=== PATIENT | female | born 1990 | race Caucasian/White ===

== ENCOUNTER 2016-08-17 12:17 | Emergency (ER) | payer MEDICAID ==
[2016-08-17 12:44] LABS: BASOPHILS 0.4 % (0-2); EOSINOPHILS 3.1 % (0-7); HEMATOCRIT 42.8 % (36.0-48.0); HEMOGLOBIN 14.8 g/dL (12-16); IMMATURE GRANULOCYTES 0.3 % (0-5); LYMPHOCYTES 16.6 % (15-50); MCH 30.1 pg (26.0-34.0); MCHC 34.6 g/dL (31.0-37.0); MCV 87.2 fL (80.0-100.0); MEAN PLATELET VOLUME 9.2 fL (7.4-10.4); MONOCYTES 5.2 % (2-11); NEUTROPHILS 74.4 % (40-80); PLATELET COUNT 327 10x3/uL (130-400); RBC 4.91 10x6/uL (4.00-5.40); RDW 12.7 % (11.5-14.5); WBC 11.5 10x3/uL (4.8-10.8)
[2016-08-17 13:06] LABS: ALBUMIN 3.6 g/dL (3.4-5.0); ALKALINE PHOSPHATASE 77 U/L (46-116); ALT (SGPT) 24 U/L (10-68); CALC OSMOLALITY 276 mosm/kg (275-300); CALCIUM 9.2 mg/dL (8.5-10.1); CARBON DIOXIDE 21.9 mmol/L (21.0-32.0); CHLORIDE - SERUM 103 mmol/L (98-107); CREATININE - SERUM 0.5 mg/dL (0.6-1.3); GLUCOSE 101 mg/dL (74-106); POTASSIUM - SERUM 4.4 mmol/L (3.5-5.1); PROTEIN - SERUM 7.4 g/dL (6.4-8.2); SODIUM 138 mmol/L (136-145); UREA NITROGEN 15 mg/dL (7-18); eGFR NON AFRICAN AMERICAN > 90 mL/min (90-120)
[2016-08-17 14:00] LABS: APPEARANCE CLEAR (CLEAR); COLOR YELLOW (YELLOW); LEUKOCYTE ESTERASE 2+ (NEGATIVE)
[2016-08-17 14:01] LABS: BILIRUBIN NEGATIVE (NEGATIVE); EPITHELIAL CELLS 0-5 /hpf (0-5); GLUCOSE NEGATIVE (NEGATIVE); KETONE LARGE mg/dL (NEGATIVE); NITRITE POSITIVE (NEGATIVE); PROTEIN TRACE mg/dL (NEGATIVE); RED CELLS - URINE 0-5 /hpf (0-5); UROBILINOGEN NORMAL (NORMAL); WHITE CELLS - URINE 25-50 /hpf (0-5)
[2016-08-17 14:02] LABS: BACTERIA MANY /hpf (NONE SEEN)
== END 2016-08-17 15:58 | disposition home or self-care (01) ==
LOC: D.ER 12:17
PROVIDERS: Emergency Medicine; Physician Assistant
DX: E10.649 Type 1 diabetes mellitus with hypoglycemia without coma (principal); Z79.4 Long term (current) use of insulin; R51 Headache; N39.0 Urinary tract infection, site not specified

== ENCOUNTER 2017-02-12 00:18 | Emergency (ER) | payer MEDICAID ==
[2017-02-12 00:54] LABS: HCG URINE NEGATIVE (NEGATIVE)
[2017-02-12 00:58] LABS: APPEARANCE CLOUDY (CLEAR); BILIRUBIN NEGATIVE (NEGATIVE); COLOR YELLOW (YELLOW); GLUCOSE 1000 mg/dL (NEGATIVE); KETONE NEGATIVE (NEGATIVE); NITRITE POSITIVE (NEGATIVE); PROTEIN TRACE mg/dL (NEGATIVE); RED CELLS - URINE 0-5 /hpf (0-5); SPECIFIC GRAVITY 1.015 (1.005-1.020); UROBILINOGEN NORMAL (NORMAL); WHITE CELLS - URINE 25-50 /hpf (0-5)
[2017-02-12 00:59] LABS: BACTERIA MANY /hpf (NONE SEEN); EPITHELIAL CELLS RARE /hpf (0-5)
[2017-02-12 01:03] LABS: UDS - AMPHET NEGATIVE QUAL (NEGATIVE); UDS - BARB NEGATIVE QUAL (NEGATIVE); UDS - BENZO NEGATIVE QUAL (NEGATIVE); UDS - COCAINE NEGATIVE QUAL (NEGATIVE); UDS - OPIATE NEGATIVE QUAL (NEGATIVE); UDS - PCP NEGATIVE QUAL (NEGATIVE); UDS - THC POSITIVE QUAL (NEGATIVE)
[2017-02-12 01:14] LABS: BASOPHILS 0.9 % (0-2); EOSINOPHILS 4.3 % (0-7); HEMATOCRIT 41.2 % (36.0-48.0); HEMOGLOBIN 14.5 g/dL (12-16); IMMATURE GRANULOCYTES 0.2 % (0-5); LYMPHOCYTES 61.8 % (15-50); MCH 29.8 pg (26.0-34.0); MCHC 35.2 g/dL (31.0-37.0); MCV 84.8 fL (80.0-100.0); MONOCYTES 9.3 % (2-11); NEUTROPHILS 23.5 % (40-80); PLATELET COUNT 296 10x3/uL (130-400); RBC 4.86 10x6/uL (4.00-5.40); RDW 13.1 % (11.5-14.5); WBC 5.3 10x3/uL (4.8-10.8)
[2017-02-12 01:40] LABS: ALBUMIN 3.8 g/dL (3.4-5.0); ALKALINE PHOSPHATASE 56 U/L (46-116); ALT (SGPT) 18 U/L (10-68); AMYLASE - SERUM 47 U/L (25-115); CALC OSMOLALITY 275 mosm/kg (275-300); CALCIUM 8.7 mg/dL (8.5-10.1); CARBON DIOXIDE 24.7 mmol/L (21.0-32.0); CHLORIDE - SERUM 106 mmol/L (98-107); CREATININE - SERUM 0.5 mg/dL (0.6-1.3); LIPASE 119 U/L (73-393); POTASSIUM - SERUM 3.6 mmol/L (3.5-5.1); PROTEIN - SERUM 7.6 g/dL (6.4-8.2); SODIUM 141 mmol/L (136-145); UREA NITROGEN 8 mg/dL (7-18); eGFR NON AFRICAN AMERICAN > 90 mL/min (90-120)
[2017-02-12 01:43] LABS: GLUCOSE 43 mg/dL (74-106)
== END 2017-02-12 02:17 | disposition home or self-care (01) ==
LOC: D.ER 00:18
PROVIDERS: Family Medicine
DX: N39.0 Urinary tract infection, site not specified (principal); E11.9 Type 2 diabetes mellitus without complications; Z79.4 Long term (current) use of insulin

== ENCOUNTER 2018-10-15 16:58 | Emergency (ER) | payer MEDICAID ==
[2018-10-15 17:25] VITALS: Wt 65.0 kg
[2018-10-15 18:18] LABS: APPEARANCE CLEAR (CLEAR); BILIRUBIN NEGATIVE (NEGATIVE); COLOR YELLOW (YELLOW); GLUCOSE 1000 mg/dL (NEGATIVE); KETONE NEGATIVE (NEGATIVE); NITRITE NEGATIVE (NEGATIVE); PROTEIN NEGATIVE (NEGATIVE); UROBILINOGEN NORMAL (NORMAL)
[2018-10-15 18:19] LABS: RED CELLS - URINE RARE /hpf (0-5)
[2018-10-15 18:20] LABS: BACTERIA FEW /hpf (NONE SEEN)
[2018-10-15 18:21] LABS: HCG URINE NEGATIVE (NEGATIVE)
[2018-10-15 18:22] LABS: BASOPHILS 0.5 % (0-2); EOSINOPHILS 2.7 % (0-7); HEMATOCRIT 33.8 % (36.0-48.0); IMMATURE GRANULOCYTES 0.3 % (0-5); LYMPHOCYTES 38.3 % (15-50); MCH 29.4 pg (26.0-34.0); MCHC 35.5 g/dL (31.0-37.0); MCV 82.8 fL (80.0-100.0); MEAN PLATELET VOLUME 9.4 fL (7.4-10.4); MONOCYTES 4.7 % (2-11); NEUTROPHILS 53.5 % (40-80); RBC 4.08 10x6/uL (4.00-5.40); RDW 13.2 % (11.5-14.5)
[2018-10-15 18:25] LABS: PLATELET COUNT 202 10x3/uL (130-400)
[2018-10-15 18:47] LABS: ALBUMIN 3.7 g/dL (3.4-5.0); ALKALINE PHOSPHATASE 96 U/L (46-116); ALT (SGPT) 63 U/L (10-68); BILIRUBIN - TOTAL 0.53 mg/dL (0.2-1.3); CALC OSMOLALITY 286 mosm/kg (275-300); CALCIUM 8.5 mg/dL (8.5-10.1); CARBON DIOXIDE 24.1 mmol/L (21.0-32.0); CHLORIDE - SERUM 106 mmol/L (98-107); CREATININE - SERUM 0.9 mg/dL (0.6-1.3); GLUCOSE 268 mg/dL (74-106); MAGNESIUM - SERUM 1.9 mg/dL (1.8-2.4); POTASSIUM - SERUM 3.8 mmol/L (3.5-5.1); PROTEIN - SERUM 7.2 g/dL (6.4-8.2); SODIUM 139 mmol/L (136-145); UREA NITROGEN 13 mg/dL (7-18); eGFR NON AFRICAN AMERICAN 80 mL/min (90-120)
[2018-10-15 18:51] LABS: KETONE - SERUM NEGATIVE (NEGATIVE)
[2018-10-15] MEDS ORDERED: CIPRO500 MG PO (19:57)
[2018-10-15] MEDS ORDERED: VISTARIL25 MG PO (19:57)
[2018-10-15] MEDS ORDERED: GUAIFENESI100 MG/5 M PO (20:02)
[2018-10-15 20:59] VITALS: BP 102/72
[2018-11-17 18:24] VITALS: Wt 65.0 kg
== END 2018-10-15 21:00 | disposition home or self-care (01) ==
LOC: D.ER 16:58
PROVIDERS: Family Medicine
DX: N39.0 Urinary tract infection, site not specified (principal); R21 Rash and other nonspecific skin eruption; J06.9 Acute upper respiratory infection, unspecified

== ENCOUNTER 2018-11-17 11:17 | Inpatient (IN) | payer MEDICAID ==
[~2018-11-17] VITALS: Ht 154.9 cm; Wt 62.7 kg
[2018-11-17] VITALS (7 sets, daily range): BP systolic 87–112; BP diastolic 44–73; Ht 154.9 cm; Wt 62.7 kg
[~2018-11-17 11:17] MED LIST: CIPRO500 MG PO; GUAIFENESI100 MG/5 M PO; VISTARIL25 MG PO
[2018-11-17 12:37] LABS: BASOPHILS 0.2 % (0-2); EOSINOPHILS 0.1 % (0-7); HEMATOCRIT 36.9 % (36.0-48.0); HEMOGLOBIN 12.7 g/dL (12-16); IMMATURE GRANULOCYTES 0.3 % (0-5); LYMPHOCYTES 5.6 % (15-50); MCH 29.5 pg (26.0-34.0); MCHC 34.4 g/dL (31.0-37.0); MCV 85.6 fL (80.0-100.0); MEAN PLATELET VOLUME 8.9 fL (7.4-10.4); MONOCYTES 2.8 % (2-11); RBC 4.31 10x6/uL (4.00-5.40); RDW 13.2 % (11.5-14.5); WBC 18.9 10x3/uL (4.8-10.8)
[2018-11-17 12:49] LABS: HCG SERUM NEGATIVE (NEGATIVE); PLATELET COUNT 397 10x3/uL (130-400)
[2018-11-17 12:54] LABS: ALKALINE PHOSPHATASE 79 U/L (46-116); ALT (SGPT) 12 U/L (10-68); APTT 30.1 SECONDS (22.8-39.4); BILIRUBIN - TOTAL 1.07 mg/dL (0.2-1.3); CALC OSMOLALITY 282 mosm/kg (275-300); CALCIUM 8.9 mg/dL (8.5-10.1); CARBON DIOXIDE 23.6 mmol/L (21.0-32.0); CHLORIDE - SERUM 102 mmol/L (98-107); CREATININE - SERUM 0.9 mg/dL (0.6-1.3); INR 1.11 (0.85-1.17); POTASSIUM - SERUM 4.2 mmol/L (3.5-5.1); PROTEIN - SERUM 8.3 g/dL (6.4-8.2); PROTIME 13.8 SECONDS (11.6-15.0); SODIUM 138 mmol/L (136-145); UREA NITROGEN 13 mg/dL (7-18); eGFR NON AFRICAN AMERICAN 80 mL/min (90-120)
[2018-11-17 12:58] LABS: GLUCOSE 219 mg/dL (74-106)
[2018-11-17 13:05] LABS: CKMB 0.3 U/L (0.0-3.6); CREATINE KINASE 80 UL (21-215); THYROID STIMULATING HORMONE 22.28 uIU/mL (0.36-3.74); TROPONIN-I < 0.017 ng/mL (0.000-0.060)
--- NOTE | 2018-11-17 13:27 | NUR ---
OC SPECIMEN OBTAINED, LABELED AT BS AND SENT TO LAB
[2018-11-17 13:38] LABS: APPEARANCE CLEAR (CLEAR); BILIRUBIN NEGATIVE (NEGATIVE); COLOR YELLOW (YELLOW); GLUCOSE 1000 mg/dL (NEGATIVE); KETONE MODERATE mg/dL (NEGATIVE); NITRITE NEGATIVE (NEGATIVE); PROTEIN NEGATIVE (NEGATIVE); SPECIFIC GRAVITY 1.015 (1.005-1.020); UROBILINOGEN NORMAL (NORMAL)
[2018-11-17 13:41] LABS: BACTERIA FEW /hpf (NEGATIVE); EPITHELIAL CELLS 0-5 /hpf (0-5); MUCUS >1+ /lpf (NONE SEEN); RED CELLS - URINE 0-5 /hpf (0-5); WHITE CELLS - URINE OCC /hpf (NEGATIVE)
[2018-11-17 13:43] LABS: UDS - AMPHET NEGATIVE QUAL (NEGATIVE); UDS - BARB NEGATIVE QUAL (NEGATIVE); UDS - BENZO NEGATIVE QUAL (NEGATIVE); UDS - COCAINE NEGATIVE QUAL (NEGATIVE); UDS - OPIATE NEGATIVE QUAL (NEGATIVE); UDS - PCP NEGATIVE QUAL (NEGATIVE); UDS - THC NEGATIVE QUAL (NEGATIVE)
--- NOTE | 2018-11-17 17:25 | NUR ---
ROCEPHIN INFUSION COMPLETE
--- NOTE | 2018-11-17 17:34 | NUR ---
REPORT T6O HILDA. ADELIA BY SBAR FORMAT
--- NOTE | 2018-11-17 17:50 | NUR ---
TRANSPORTED TO ROOM #1209, CONDITION STABLE
[2018-11-17] MEDS ORDERED: HUMALOG 30100 UNITS/ SC (18:52)
[2018-11-17] MEDS ORDERED: LANTUS SOL100 UNIT/1 SC (18:55)
--- NOTE | 2018-11-17 19:31 | MORECARE ---
CASE MANAGEMENT DISCHARGE SUMMARY PATIENT: LOREN CHANG UNIT: [id number] ADM DATE: 11/17/18 AGE: 28 : [birth year] SEX: F ROOM/BED: D.1209 AUTHOR: MINH LEE PHYSICIAN: REFERRING PHYSICIAN: ROSENDO VILLALOBOS MD DATE OF SERVICE: 11/17/18 Discharge Plan Patient Name: LOREN CHANG Facility: [facility]:[place] : 1990 Planned Disposition: Home Anticipated Discharge Date: 11/20/18 Discharge Date: Expected LOS: 3 Initial Reviewer: [email or web address] Initial Review Date: 11/17/2018 Generated: 11/17/18 8:30 pm DCPIA - Discharge Planning Initial Assessment Updated by [email or web address]: Alla Griggs on 11/17/18 7:27 pm * Is the patient Alert and Oriented? Yes * PCP Dr. Tanner - first appointment next Tuesday. * Preadmission Environment Home with Family * ADLs Independent * Equipment Glucometer * List name and contact numbers for known caregivers / representatives who currently or will assist patient after discharge: Krysta Mcgill [facility] - [phone] * Verbal permission to speak to the caregivers and representatives has been obtained from the patient. Yes * Community resources currently utilized None * Additional services required to return to the preadmission environment? No * Can the patient safely return to the preadmission environment? Yes * Has this patient been hospitalized within the prior 30 days at any hospital? No Patient Name: LOREN CHANG Page [id number] at 1931 All edits/amendments must be made on the electronic document DICTATION DATE: 11/17/181929 ELECTRONICS PROCESSING SUPERVISOR: ASHLEY 11/17/181929 RPT#: [id number] DC DATE: STATUS: ADM IN [facility] [address] [place] [address] END OF REPORT
--- NOTE | 2018-11-17 19:37 | MORECARE ---
CASE MANAGEMENT DISCHARGE SUMMARY PATIENT: LOREN CHANG UNIT: [id number] ADM DATE: 11/17/18 AGE: 28 : [birth year] SEX: F ROOM/BED: D.1209 AUTHOR: JESUS,DOC PHYSICIAN: REFERRING PHYSICIAN: ROSENDO VILLALOBOS MD DATE OF SERVICE: 11/17/18 Discharge Plan Patient Name: LOREN CHANG Facility: [facility]:[place] : 1990 Planned Disposition: Home Anticipated Discharge Date: 11/20/18 Discharge Date: Expected LOS: 3 Initial Reviewer: [email or web address] Initial Review Date: 11/17/2018 Generated: 11/17/18 8:37 pm DCP- Discharge Planning Updated by [email or web address]: Alla Griggs on 11/17/18 6:[address] DC PLAN:Return home with her significant other. ANTICIPATED DC NEEDS: Denied known needs at the time of this assessment. CM met with patient and her boyfriend, Krysta to complete initial dc planning assessment. Patient covered up and did not answer or acknowledge CM. CM educated patient's boyfriend on the CM role and verbal consent given by him to complete assessment. CM verified patient's address, phone number, and emergency contact phone numbers. Patient lives at home with her boyfriend and he reports she is independent in her care. At discharge patient plan will be to return home and he feels this is a safe discharge. CM discussed availability of home health, rehab services, and medical equipment. He denied known discharge needs at this time. Her boyfriend will transport her home at time of discharge. CM will continue to follow and will assist as needed with dc plans/needs. Alla Griggs RN, [facility] DCPIA - Discharge Planning Initial Assessment Updated by [email or web address]: Alla Griggs on 11/17/18 7:27 pm * Is the patient Alert and Oriented? Yes * PCP Dr. Tanner - first appointment next Tuesday. * Preadmission Environment Home with Family * ADLs Independent * Equipment Glucometer * List name and contact numbers for known caregivers / representatives who currently or will assist patient after discharge: Krysta Mcgill - [facility] - [phone] * Verbal permission to speak to the caregivers and representatives has been obtained from the patient. Yes * Community resources currently utilized None * Additional services required to return to the preadmission environment? No * Can the patient safely return to the preadmission environment? Yes * Has this patient been hospitalized within the prior 30 days at any hospital? No Last DP export: 11/17/18 6:31 p Patient Name: LOREN CHANG Page [id number] at 1937 All edits/amendments must be made on the electronic document DICTATION DATE: 11/17/181936 GARBAGE DEPOT WORKER: ASHLEY 11/17/181936 RPT#: [id number] DC DATE: STATUS: ADM IN [facility] [address] [place] [address] END OF REPORT
[2018-11-17 20:48] LABS: MONO NEGATIVE (NEGATIVE)
[2018-11-17 20:48] LABS: KETONE - SERUM NEGATIVE (NEGATIVE)
[2018-11-17 20:56] LABS: CALC OSMOLALITY 279 mosm/kg (275-300); CALCIUM 7.6 mg/dL (8.5-10.1); CARBON DIOXIDE 21.8 mmol/L (21.0-32.0); CHLORIDE - SERUM 107 mmol/L (98-107); CREATININE - SERUM 0.7 mg/dL (0.6-1.3); GLUCOSE 154 mg/dL (74-106); POTASSIUM - SERUM 3.7 mmol/L (3.5-5.1); SODIUM 140 mmol/L (136-145); UREA NITROGEN 8 mg/dL (7-18); eGFR NON AFRICAN AMERICAN > 90 mL/min (90-120)
[2018-11-18] VITALS: BP 87/51
[2018-11-18 04:00] VITALS: BP 91/59
[2018-11-18 07:32] LABS: BASOPHILS 0.1 % (0-2); EOSINOPHILS 0 % (0-7); HEMATOCRIT 35.7 % (36.0-48.0); IMMATURE GRANULOCYTES 0.4 % (0-5); LYMPHOCYTES 6.1 % (15-50); MCH 29.1 pg (26.0-34.0); MCHC 33.6 g/dL (31.0-37.0); MCV 86.7 fL (80.0-100.0); MEAN PLATELET VOLUME 8.8 fL (7.4-10.4); NEUTROPHILS 91.4 % (40-80); PLATELET COUNT 319 10x3/uL (130-400); RBC 4.12 10x6/uL (4.00-5.40); RDW 13.1 % (11.5-14.5)
[2018-11-18 07:34] LABS: WBC 13.8 10x3/uL (4.8-10.8)
--- NOTE | 2018-11-18 07:36 | NUR ---
PT LAYING IN BED, RESTING. RR EVEN AND UNLABORED. EDUCATED PT TO HOLD ARM STRAIGHT FOR IV IN R. AC TO FUNCTION. ASSESSMENT COMPLETE. WILL CONTINUE TO MONITOR.
[2018-11-18 07:53] LABS: C-REACTIVE PROTEIN 8.6 mg/dL (0.0-0.9); CALCIUM 8.6 mg/dL (8.5-10.1); CHLORIDE - SERUM 104 mmol/L (98-107); CREATININE - SERUM 0.8 mg/dL (0.6-1.3); MAGNESIUM - SERUM 1.9 mg/dL (1.8-2.4); PHOSPHOROUS 3.4 mg/dL (2.5-4.9); SODIUM 136 mmol/L (136-145); UREA NITROGEN 9 mg/dL (7-18); eGFR NON AFRICAN AMERICAN > 90 mL/min (90-120)
[2018-11-18 08:03] LABS: CALC OSMOLALITY 281 mosm/kg (275-300); GLUCOSE 289 mg/dL (74-106); POTASSIUM - SERUM 4.3 mmol/L (3.5-5.1)
[2018-11-18 08:36] LABS: ERYTHROCYTE SEDIMENTATION RATE 25 mm/hr (0-20)
[2018-11-18 09:07] VITALS: BP 112/68
--- NOTE | 2018-11-18 16:10 | NUR ---
I have reviewed this patient and I concur with the Shift Assessment completed by the Licensed Practical Nurse today this shift.
[2018-11-18 17:36] VITALS: BP 95/58
--- NOTE | 2018-11-18 19:00 | NUR ---
PATIENT LYING IN BED WITH SIGNIFICANT OTHER. PATIENT STATES THAT SHE HAS BEEN HAVING REALLY BAD DIARREAH TODAY AND HEADACHE. PAIN IS A 5 TO 7 OUT OF A 10. PATIENT HOOKED UP TO TELEMETRY. PATIENT ENCOURAGED TO CALL WITH ANY NEEDS. PATIENT CALL LIGHT AND BEDSIDE TABLE WITHIN REACH. BED IN LOW POSITION.
[2018-11-18 19:45] VITALS: BP 130/79
--- NOTE | 2018-11-18 22:28 | NUR ---
PATIENT LYING IN BED. BOYFRIEND AT BEDSIDE. PATIENTS STATES SHE THINKS HER NAUSEA IS BETTER, BUT SAYS SHE STILL FEELS PRETTY SICK. ENCOURAGED PATIENT TO CALL WITH ANY NEEDS. BED IN LOW POSITION. CALL LIGHT WITHIN REACH.
[2018-11-19 00:08] VITALS: BP 119/76
[2018-11-19 04:57] VITALS: BP 113/79
--- NOTE | 2018-11-19 07:23 | NUR ---
PT RESTING, EYED CLOSED. RR EVEN AND UNLABORED. NO SIGNS OF DISTRESS AT THIS TIME. WILL CONTINUE TO MONITOR.
[2018-11-19 07:47] LABS: BASOPHILS 0.3 % (0-2); EOSINOPHILS 0.2 % (0-7); HEMOGLOBIN 12.2 g/dL (12-16); IMMATURE GRANULOCYTES 0.5 % (0-5); LYMPHOCYTES 23.2 % (15-50); MCH 29.2 pg (26.0-34.0); MCHC 33.9 g/dL (31.0-37.0); MCV 86.1 fL (80.0-100.0); MEAN PLATELET VOLUME 9.2 fL (7.4-10.4); MONOCYTES 4.6 % (2-11); NEUTROPHILS 71.2 % (40-80); PLATELET COUNT 394 10x3/uL (130-400); RBC 4.18 10x6/uL (4.00-5.40); RDW 13.2 % (11.5-14.5); WBC 15.1 10x3/uL (4.8-10.8)
[2018-11-19 08:00] LABS: CALCIUM 8.9 mg/dL (8.5-10.1); CHLORIDE - SERUM 109 mmol/L (98-107); CREATININE - SERUM 0.7 mg/dL (0.6-1.3); POTASSIUM - SERUM 3.7 mmol/L (3.5-5.1); SODIUM 143 mmol/L (136-145); UREA NITROGEN 7 mg/dL (7-18); eGFR NON AFRICAN AMERICAN > 90 mL/min (90-120)
[2018-11-19 08:05] LABS: CALC OSMOLALITY 287 mosm/kg (275-300); CARBON DIOXIDE 24.1 mmol/L (21.0-32.0); GLUCOSE 181 mg/dL (74-106)
[2018-11-19 10:03] VITALS: BP 95/57
--- NOTE | 2018-11-19 13:00 | NUR ---
PT IN SHOWER. LINENS CHANGED.
--- NOTE | 2018-11-19 16:15 | NUR ---
PT AMBULATING IN HALLWAY
[2018-11-19 17:36] VITALS: BP 119/76
--- NOTE | 2018-11-19 18:58 | NUR ---
UPON ENTERING ROOM, PT WAS TEARFUL AND C/O PAIN IN HER IV. IV D/C WITH CATHETER TIP INTACT. RESITED TO LEFT FOREARM. DRESSING PLACED, CDI.
[2018-11-19 20:04] VITALS: BP 109/74
--- NOTE | 2018-11-19 21:04 | NUR ---
PATIENTS BLOOD SUGAR IS 79.
[2018-11-20 01:07] VITALS: BP 112/75
[2018-11-20 04:22] VITALS: BP 103/69
[2018-11-20 06:18] LABS: BASOPHILS 0.6 % (0-2); EOSINOPHILS 1.9 % (0-7); HEMATOCRIT 35.4 % (36.0-48.0); IMMATURE GRANULOCYTES 0.3 % (0-5); LYMPHOCYTES 38.6 % (15-50); MCHC 33.9 g/dL (31.0-37.0); MCV 85.5 fL (80.0-100.0); MEAN PLATELET VOLUME 8.7 fL (7.4-10.4); NEUTROPHILS 53.6 % (40-80); PLATELET COUNT 392 10x3/uL (130-400); RBC 4.14 10x6/uL (4.00-5.40); RDW 13.1 % (11.5-14.5)
[2018-11-20 06:22] LABS: WBC 10.2 10x3/uL (4.8-10.8)
[2018-11-20 06:25] LABS: CALCIUM 8.4 mg/dL (8.5-10.1); CARBON DIOXIDE 27.2 mmol/L (21.0-32.0); CHLORIDE - SERUM 106 mmol/L (98-107); CREATININE - SERUM 0.6 mg/dL (0.6-1.3); POTASSIUM - SERUM 3.8 mmol/L (3.5-5.1); SODIUM 143 mmol/L (136-145); eGFR NON AFRICAN AMERICAN > 90 mL/min (90-120)
[2018-11-20 06:37] LABS: CALC OSMOLALITY 283 mosm/kg (275-300); UREA NITROGEN 14 mg/dL (7-18)
[2018-11-20 06:38] LABS: GLUCOSE 57 mg/dL (74-106)
--- NOTE | 2018-11-20 07:15 | NUR ---
PT LYING IN BED. EYES CLOSED. CHEST RISING AND FALLING. ON ROOM AIR. LEFT FA 22G IV SL. BED LOW. CL IN REACH. WILL CONTINUE TO MONITOR.
[2018-11-20 07:54] VITALS: BP 115/67
--- NOTE | 2018-11-20 08:15 | NUR ---
LEFT FA 22G IV FLUSHED WITH 10ML OF NS.
--- NOTE | 2018-11-20 08:15 | NUR ---
FLUSHED PT'S RIGHT FA 22G IV WITH 10ML NS.
--- NOTE | 2018-11-20 09:35 | NUR ---
PT LYING IN BED. EYES CLOSED. CHEST RISING AND FALLING. ROOM AIR. BED LOW. CL IN REACH. WILL CONTINUE TO MONITOR.
--- NOTE | 2018-11-20 09:57 | NUR ---
SPOKE WITH DATABASE DEVELOPMENT PROJECT MANAGER FROM [employer] ABOUT WORK EXCUSE FOR PT'S BOYFRIEND. SHE STATES SHE WILL ASK KASIE TO GET ONE. I VERBALIZED UNDERSTANDING.
--- NOTE | 2018-11-20 10:00 | NUR ---
SPOKE WITH KASIE DELVALLE AND SHE STATES SHE SPOKE WITH PEDRO DELVALLEDISPLAY TRIMMER AND SHE IS GOING TO DEAL WITH WORK EXCUSE FOR PT'S BOYFRIEND.
--- NOTE | 2018-11-20 11:19 | NUR ---
I have reviewed this patient and I concur with the Shift Assessment completed by the Licensed Practical Nurse today this shift.
[2018-11-20 11:52] VITALS: BP 109/61
[2018-11-20 13:09] LABS: EBV - EARLY ANTIGEN AB IGG 66.5 U/mL (0.0-8.9); EBV VIRAL CAPSID AB IGG >600.0 U/mL (0.0-17.9); EBV VIRAL CAPSID AB IGM <36.0 U/mL (0.0-35.9)
[2018-11-20] MEDS ORDERED: SYNTHROID50 MCG PO (14:18)
[2018-11-20] MEDS ORDERED: ZITHROMAX500 MG PO (14:22)
[2018-11-20] MEDS ORDERED: OMNICEF300 MG PO (14:22)
[2018-11-20] MEDS ORDERED: ALBUTEROL1.25 MG/3 INH (14:23)
[2018-11-20] MEDS ORDERED: SINGULAIR10 MG PO (14:23)
[2018-11-20] MEDS ORDERED: SYMBICORT 16010.2 GM INH (14:24)
--- NOTE | 2018-11-20 16:26 | NUR ---
DISCHARGE INSTRUCTIONS EXPLAINED TO PT AND DISCHARGE PAPERS GIVEN TO PT ALONG WITH WORK EXCUSE FOR PT'S BOYFRIEND. TELEMETRY DC'D. LEFT FA 22G IV DC'D WITH CATH INTACT. DISCHARGE PAPERS SIGNED. PT STATES HER BOYFRIEND GETS OFF IN 20 MINUTES.
--- NOTE | 2018-11-20 17:03 | NUR ---
PT REFUSED WC. PT LEFT BY AMBULATING WITH BOYFRIEND IN PERSONAL CAR.
--- NOTE | 2018-11-20 17:37 | MORECARE ---
CASE MANAGEMENT DISCHARGE SUMMARY PATIENT: LOREN CHANG UNIT: [id number] ADM DATE: 11/17/18 AGE: 28 : [birth year] SEX: F ROOM/BED: D.1209 AUTHOR: JESUS,DOC PHYSICIAN: REFERRING PHYSICIAN: ROSENDO VILLALOBOS MD DATE OF SERVICE: 11/20/18 Discharge Plan Patient Name: LOREN CHANG Facility: [facility]:[place] : 1990 Planned Disposition: Home Anticipated Discharge Date: 11/20/18 Discharge Date: 11/20/2018 Expected LOS: 3 Initial Reviewer: [email or web address] Initial Review Date: 11/17/2018 Generated: 11/20/18 6:36 pm DCP- Discharge Planning Updated by [email or web address]: Alla Griggs on 11/17/18 6:[address] DC PLAN:Return home with her significant other. ANTICIPATED DC NEEDS: Denied known needs at the time of this assessment. CM met with patient and her boyfriend, Krysta to complete initial dc planning assessment. Patient covered up and did not answer or acknowledge CM. CM educated patient's boyfriend on the CM role and verbal consent given by him to complete assessment. CM verified patient's address, phone number, and emergency contact phone numbers. Patient lives at home with her boyfriend and he reports she is independent in her care. At discharge patient plan will be to return home and he feels this is a safe discharge. CM discussed availability of home health, rehab services, and medical equipment. He denied known discharge needs at this time. Her boyfriend will transport her home at time of discharge. CM will continue to follow and will assist as needed with dc plans/needs. Alla Griggs RN, [facility] DCPIA - Discharge Planning Initial Assessment Updated by [email or web address]: Alla Griggs on 11/17/18 7:27 pm * Is the patient Alert and Oriented? Yes * PCP Dr. Tanner - first appointment next Tuesday. * Preadmission Environment Home with Family * ADLs Independent * Equipment Glucometer * List name and contact numbers for known caregivers / representatives who currently or will assist patient after discharge: Krysta Mcgill [facility] - [phone] * Verbal permission to speak to the caregivers and representatives has been obtained from the patient. Yes * Community resources currently utilized None * Additional services required to return to the preadmission environment? No * Can the patient safely return to the preadmission environment? Yes * Has this patient been hospitalized within the prior 30 days at any hospital? No Last DP export: 11/17/18 6:37 p Patient Name: LOREN CHANG Page [id number] at 1737 All edits/amendments must be made on the electronic document DICTATION DATE: 11/20/181735 HELP DESK TECHNICIAN: ASHLEY 11/20/181735 RPT#: [id number] [place] DATE:11/20/18 STATUS: DIS IN [facility] [address] [place] [address] END OF REPORT
== END 2018-11-20 17:04 | disposition home or self-care (01) | DRG 871 ==
LOC: D.ER 11:17 → D.M3 15:27
PROVIDERS: Emergency Medicine; ADMIT Internal Medicine Nephrology; ATTEND Internal Medicine Nephrology
DX: A41.9 Sepsis, unspecified organism (principal); G93.41 Metabolic encephalopathy; E10.65 Type 1 diabetes mellitus with hyperglycemia; E10.42 Type 1 diabetes mellitus with diabetic polyneuropathy; E03.9 Hypothyroidism, unspecified

== ENCOUNTER → 2018-11-23 12:29 | Outpatient (CLI) | payer MEDICAID ==
[2018-11-17 18:24] VITALS: BMI 26.1
[~2018-11-23 12:29] MED LIST changes: +ALBUTEROL1.25 MG/3 INH; +HUMALOG 30100 UNITS/ SC; +LANTUS SOL100 UNIT/1 SC; +OMNICEF300 MG PO; +SINGULAIR10 MG PO; +SYMBICORT 16010.2 GM INH; +SYNTHROID50 MCG PO; +ULTRAM50 MG PO; +ZITHROMAX500 MG PO
[2018-11-23 13:27] LABS: COMPLEMENT C4 25.4 mg/dL (17.4-52.2)
[2018-11-24 11:10] LABS: ANA REFLEX - ANTICHROMATIN ABS 0.6 AI (0.0-0.9); ANA REFLEX - CENTROMERE B ABS <0.2 AI (0.0-0.9); ANA REFLEX - DBL STRANDED DNA <1 IU/mL (0-9); ANA REFLEX - DIRECT Positive (Negative); ANA REFLEX - JO-1 AB <0.2 AI (0.0-0.9); ANA REFLEX - RNP ANTIBODIES 2.7 AI (0.0-0.9); ANA REFLEX - SCL-70 <0.2 AI (0.0-0.9); ANA REFLEX - SJOGRENS AB SSA <0.2 AI (0.0-0.9); ANA REFLEX - SJOGRENS AB SSB <0.2 AI (0.0-0.9); ANA REFLEX - SMITH AB <0.2 AI (0.0-0.9)
[2018-11-24 16:08] LABS: SPE - ALBUMIN 3.7 g/dL (2.9-4.4); SPE - ALPHA-1 GLOBULIN 0.3 g/dL (0.0-0.4); SPE - ALPHA-2 GLOBULIN 1.2 g/dL (0.4-1.0); SPE - BETA GLOBULIN 0.9 g/dL (0.7-1.3); SPE - GAMMA GLOBULIN 1.2 g/dL (0.4-1.8); SPE - M-SPIKE Not Observed g/dL (Not Observed); SPE - TOTAL PROTEIN 7.3 g/dL (6.0-8.5)
[2018-11-27 13:09] LABS: C1 ESTERASE INHIBITOR 39 mg/dL (21-39)
== END | disposition home or self-care (01) ==
LOC: D.LAB 12:29
PROVIDERS: ATTEND Nurse Practitioner
DX: E06.3 Autoimmune thyroiditis (principal); D84.1 Defects in the complement system; L23.9 Allergic contact dermatitis, unspecified cause

== ENCOUNTER 2019-01-13 14:37 | Emergency (ER) | payer MEDICAID ==
[~2019-01-13] VITALS: Ht 154.9 cm; Wt 63.2 kg
[~2019-01-13 14:37] MED LIST changes: -ULTRAM50 MG PO
[2019-01-13 15:26] VITALS: Ht 154.9 cm; Wt 63.2 kg
[2019-01-13] MEDS ORDERED: VISTARIL25 MG PO (16:59)
[2019-01-13] MEDS ORDERED: ULTRAM50 MG PO (16:59)
[2019-01-13 17:40] VITALS: BP 96/54
== END 2019-01-13 17:40 | disposition home or self-care (01) ==
LOC: D.ER 14:37
DX: R21 Rash and other nonspecific skin eruption (principal); L25.9 Unspecified contact dermatitis, unspecified cause; M25.50 Pain in unspecified joint; E10.40 Type 1 diabetes mellitus with diabetic neuropathy, unspecified; Z79.4 Long term (current) use of insulin; L94.8 Other specified localized connective tissue disorders

== ENCOUNTER 2019-09-26 16:40 | Emergency (ER) | payer MEDICAID ==
[~2019-09-26] VITALS: Ht 154.9 cm; Wt 61.4 kg
[~2019-09-26 16:40] MED LIST changes: +ULTRAM50 MG PO
[2019-09-26 17:35] VITALS: Ht 154.9 cm; Wt 61.4 kg
[2019-09-26 18:40] LABS: BASOPHILS 0.9 % (0-2); EOSINOPHILS 4.3 % (0-7); HEMATOCRIT 41.9 % (36.0-48.0); HEMOGLOBIN 14.6 g/dL (12-16); IMMATURE GRANULOCYTES 0.1 % (0-5); LYMPHOCYTES 37.1 % (15-50); MCHC 34.8 g/dL (31.0-37.0); MEAN PLATELET VOLUME 9.2 fL (7.4-10.4); MONOCYTES 7.5 % (2-11); NEUTROPHILS 50.1 % (40-80); PLATELET COUNT 362 10x3/uL (130-400); RBC 4.87 10x6/uL (4.00-5.40); RDW 12.5 % (11.5-14.5); WBC 8.9 10x3/uL (4.8-10.8)
[2019-09-26 18:52] LABS: CALC OSMOLALITY 278 mosm/kg (275-300); CALCIUM 9.2 mg/dL (8.5-10.1); CARBON DIOXIDE 24.9 mmol/L (21.0-32.0); CHLORIDE - SERUM 106 mmol/L (98-107); CREATININE - SERUM 0.9 mg/dL (0.6-1.3); POTASSIUM - SERUM 4.1 mmol/L (3.5-5.1); SODIUM 141 mmol/L (136-145); UREA NITROGEN 15 mg/dL (7-18); eGFR NON AFRICAN AMERICAN 79 mL/min (90-120)
[2019-09-26 18:57] LABS: GLUCOSE 51 mg/dL (74-106)
[2019-09-26 19:01] LABS: ALBUMIN 4.4 g/dL (3.4-5.0); ALKALINE PHOSPHATASE 74 U/L (30-120); ALT (SGPT) 16 U/L (10-68); BILIRUBIN - TOTAL 1.02 mg/dL (0.2-1.3)
[2019-09-26] MEDS ORDERED: CYCLOBENZAPRINE10 MG PO (19:48)
[2019-09-26 20:02] VITALS: BP 126/70
== END 2019-09-26 20:02 | disposition home or self-care (01) ==
LOC: D.ER 16:40
PROVIDERS: Family Medicine
DX: R56.9 Unspecified convulsions (principal); E10.319 Type 1 diabetes mellitus with unspecified diabetic retinopathy without macular edema; Z79.4 Long term (current) use of insulin